=== PATIENT | female | born 1945 | race Two or more races ===

== ENCOUNTER → 2017-05-27 | Outpatient (CLI) | payer MEDICARE, BC ==
[2017-05-27 19:08] LABS: Basophils % (A) 1 %; CH 29.2; CHCM 32.2; Eosinophils # (A) 0.3 k/uL (0-0.7); Eosinophils % (A) 5 %; HCT 44.8 % (34.0-46.0); HDW 2.22; HGB 14.8 gm/dL (11.4-16.0); Luc # (Auto) 0.16; Luc % (Auto) 3; Lymphocytes # (A) 1.4 k/uL (1.0-4.8); Lymphocytes % (A) 22 %; MCH 30.1 pg (25.0-35.0); MCV 91.1 fL (80.0-100.0); Monocytes # (A) 0.5 k/uL (0-1.0); Monocytes % (A) 7 %; Neutrophils # (A) 3.9 k/uL (1.3-7.7); Neutrophils % (A) 63 %; RBC 4.91 m/uL (3.80-5.40); RDW 13.2 % (11.5-15.5); WBC 6.2 k/uL (3.8-10.6); WBC (Perox) 6.61
[2017-05-27 19:14] LABS: ALT 33 U/L (9-52); AST 19 U/L (14-36); Alkaline Phosphatase 74 U/L (38-126); Anion Gap 10 mmol/L; Blood Urea Nitrogen 11 mg/dL (7-17); Calcium 9.8 mg/dL (8.4-10.2); Carbon Dioxide 27 mmol/L (22-30); Chloride 105 mmol/L (98-107); Cholesterol 240 mg/dL (<200); Glucose 92 mg/dL (74-99); HDL Cholesterol 60 mg/dL (40-60); Non-African American GFR(MDRD) >60 (>60 ml/min/1.73 sqM); Potassium 4.2 mmol/L (3.5-5.1); Sodium 142 mmol/L (137-145); Total Bilirubin 0.3 mg/dL (0.2-1.3); Total Protein 6.8 g/dL (6.3-8.2); Triglycerides 124 mg/dL (<150)
== END ==
LOC: MMGSC 12:33
PROVIDERS: ATTEND Family Medicine
DX: I49.9 Cardiac arrhythmia, unspecified (principal); I10 Essential (primary) hypertension
CPT/HCPCS: 36415; 80053; 80061; 84439; 84443; 85025

== ENCOUNTER → 2017-07-08 | Outpatient (CLI) | payer MEDICARE, BC ==
--- NOTE | 2017-07-08 08:47 | US ---
EXAMINATION TYPE: US abdomen limited DATE OF EXAM: 07/08/2017 COMPARISON: NONE CLINICAL HISTORY: Q44.6 liver cyst. EXAM MEASUREMENTS: Liver Length: 14.7 cm Gallbladder Wall: 0.1 cm CBD: 0.4 cm Right Kidney: 10.0 x 6.1 x 5.2 cm Pancreas: Obscured by bowel gas, visualized portions appear wnl Liver: Cyst visualized in left lobe measuring 4.6 x 4.3 x 4.4 cm Gallbladder: wnl Evidence for sonographic Nichols's sign: No CBD: wnl Right Kidney: Echogenic foci visualized upper pole measuring 0.6 cm IMPRESSION: 1. Simple hepatic cyst left hepatic lobe. 2. Nonobstructing calculus right kidney.
--- NOTE | 2017-07-08 08:50 | CT ---
EXAMINATION TYPE: CT angio neck DATE OF EXAM: 07/08/2017 HISTORY: Bilateral carotid stenosis per order. (D 65.23). Presumed abnormal outside ultrasound. COMPARISON: NONE CT DLP: 269.5 mGycm. Automated Exposure Control for Dose Reduction was Utilized. TECHNIQUE: CTA scan of the neck is performed with IV Contrast, patient injected with 65 mL of Omnipa que 350, axial images are obtained, coronal and sagittal reformatted images are reviewed. Three-D rec onstructed images are created on an independent workstation and reviewed. FINDINGS: Carotid/Vascular Structures: There is mild to borderline moderate mixed plaque in the aortic arch. Th ere is normal three-vessel origin from the aortic arch. There is prominent calcified plaque at origin of left subclavian artery noted. Lumen diameter is narrowed down to 4.2 mm on raw data image 72. Lum en diameter reconstitutes to 7.8 mm thus stenosis is under but approaching 50%. There is more mild peripheral calcified plaque at origin of right brachiocephalic and left common car otid arteries. The right common carotid artery shows normal origin from the right brachiocephalic art bhavin. There is mild to moderate peripheral calcified plaque after carotid takeoff in the right brachio cephalic artery without significant stenosis. There is mild peripheral calcified plaque in the mid to distal right common carotid artery. There is moderate predominantly noncalcified plaque in the distal right common carotid artery. There is severe mixed plaque at right carotid bulb extending into proximal internal and external carotid arteries. S ignificant stenosis in right internal carotid artery is present at its origin. Lumen diameter is narr owed to 1.7 x 1.0 mm on raw data image 474 with reconstitution to 4.7 mm superior to this on image 52 1. This calculates to diameter narrowing approaching 80%. Computer estimates degree of narrowing up t o 1.6 mm with calculated 60% diameter narrowing and 78% area narrowing. Right external carotid artery is patent with stenosis just under 50% at origin identified. Remainder of right internal carotid art bhavin shows slightly tortuous course with moderate peripheral calcified plaque supraclinoid segment. No significant focal stenosis is clearly seen. There is no significant plaque or stenosis in the left common carotid artery. There is more moderate mixed plaque at left carotid bulb extending into proximal internal carotid artery. No significant edna nosis is identified. There is more moderate calcified plaque supraclinoid segment left distal interna l carotid artery. No significant stenosis is seen. There is patent left external carotid artery witho ut significant plaque or stenosis noted. There is tortuous course to the left vertebral artery. There is codominant vertebrobasilar system. Ve rtebral arteries are patent to the basilar junction. Other: Some calcifications of uncertain etiology are seen along the anterior inferior aspect of right submandibular gland. There is calcified 9 mm nodule lower pole level anteriorly right thyroid. There are smaller 6 mm hypo dense nodule upper pole right thyroid lobe. Consider follow-up thyroid ultrasound correlation. There is moderate disc space narrowing C4-C5 and C5-C6 levels. There is moderate disc space narrowing with sclerosis T1-T2 level. There is background mild emphysematous change and mild biapical scarring. IMPRESSION: Hemodynamically significant stenosis in proximal internal carotid artery is confirmed, di ameter and area of narrowing are calculated just under 80% by my analysis and computer [employer] analys[employer] s.
== END | disposition home or self-care (01) ==
LOC: RADUSMAIN 07:27
PROVIDERS: ATTEND Internal Medicine Interventional Cardiology
DX: K76.89 Other specified diseases of liver (principal); N20.0 Calculus of kidney; I65.29 Occlusion and stenosis of unspecified carotid artery
CPT/HCPCS: 76705; 70498; Q9967

== ENCOUNTER 2017-07-09 06:19 | Day surgery (SDC) | payer MEDICARE, BC ==
[2017-07-01 09:59] VITALS: BMI 28.1
[2017-07-09] MEDS ORDERED: ALPRAZolam 0.5 MG TAB PO PRN (06:23)
[2017-07-09] MEDS ORDERED: SODIUM CHLORIDE 0.9% 1,000 ML in EMPTY BAG 1 BAG IV ONE (06:23)
[2017-07-09] MEDS ORDERED: ATORVASTATIN 80 MG TAB PO STA (06:23)
[2017-07-09] MEDS ORDERED: ALPRAZolam 0.25 MG TAB PO PRN (06:23)
[2017-07-09] MEDS ORDERED: NITROGLYCERIN SL TABS 0.4 MG TAB SUBLINGUAL PRN (06:23)
[2017-07-09] MEDS ORDERED: ASPIRIN 325 MG TAB PO STA (06:23)
[2017-07-09 07:11] VITALS: RESP 16; TEMP 98
[2017-07-09] MEDS ORDERED: LIDOCAINE 2% INJ 20 MG/ML (20 ML MDV) ONE (07:19)
[2017-07-09] MEDS ORDERED: SODIUM CHLORIDE 0.9% 1,000 ML IV ONE (07:19)
[2017-07-09] MEDS ORDERED: VERAPAMIL 2.5 MG/ML 2 ML AMP ONE (07:20)
[2017-07-09] MEDS ORDERED: fentaNYL (PF) 50 MCG/ML 2 ML AMP ONE (07:29)
[2017-07-09] MEDS ORDERED: diphenhydrAMINE 50 MG/ML 1 ML VIAL ONE (07:30)
[2017-07-09] MEDS ORDERED: HEPARIN SODIUM 1,000 UN/ML (10ML VL) ONE (07:30)
[2017-07-09] MEDS ORDERED: LIDOCAINE 2% INJ 20 MG/ML SQ ONE (07:43)
[2017-07-09] MEDS ORDERED: diphenhydrAMINE 50 MG/ML 1 ML VIAL IVP ONE (07:55)
[2017-07-09] MEDS ORDERED: fentaNYL (PF) 50 MCG/ML 2 ML AMP IV ONE (07:55)
[2017-07-09] MEDS ORDERED: HEPARIN SODIUM 1,000 UN/ML (10ML VL) IV ONE (08:01)
[2017-07-09] MEDS ORDERED: IOHEXOL 350 MG/ML 125ML BOTTLE INJ ONE (08:10)
[2017-07-09] MEDS ORDERED: RX INFO: IV CONTRAST WAS GIVEN 1 EACH MISC MISCELLANE PRN (08:27)
[2017-07-09] MEDS ORDERED: SODIUM CHLORIDE 0.9% 1,000 ML IV SCH (08:30)
[2017-07-09] MEDS ORDERED: LISINOPRIL-HCTZ 20-25 MG 1 EACH TAB PO SCH (09:00)
[2017-07-09] MEDS ORDERED: ATORVASTATIN 20 MG TAB PO SCH (09:00)
[2017-07-09] MEDS ORDERED: amLODIPine 2.5 MG TAB PO SCH (09:00)
[2017-07-09] MEDS ORDERED: ASPIRIN 81 MG CHEW PO SCH (09:00)
[2017-07-09 12:56] VITALS: BP 145/66; PULSE 65
--- NOTE | 2017-07-09 14:00 | CC ---
CARDIAC CATHETERIZATION REPORT CARDIAC CATHETERIZATION PROCEDURE NOTE: Mrs. Collins is a 71-year-old female with known history of hypertension, hyperlipidemia who recently had a myocardial perfusion imaging was consistent with ischemia. In view of that, recommendation regarding cardiac catheterization, the procedure, risks , and complication were discussed with the patient who is in full understanding and agreement. 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 Using Xylocaine anesthesia in the Seldinger technique, 6-Finnish sheath was introduced in the right radial artery. Selective right and left coronary angiography performed using 5- Finnish 3-1/2 bend right and left [place] catheter. Multiple views of the coronary artery including hemiaxial views obtained. Following that, a 5-Finnish tight pigtail catheter was introduced in the left ventricle and a 30-degree FLOWERS view of the left ventricle was obtained. Following that, catheter and sheaths were removed. Hemostasis was obtained with deployment of TRAcelet device. There was no immediate complication. Patient is returned to her room in stable condition. Of note, the patient received 3500 units of intravenous heparin as well intra-arterial Verapamil. FINDINGS: FLUOROSCOPY: There was severe calcification involving all the coronary arteries as well as the abdominal aorta. LEFT MAIN: This is a short size vessel bifurcating in the left circumflex, left anterior descending artery is without any evidence of high-grade stenosis. LEFT ANTERIOR DESCENDING ARTERY; This is a large-sized vessel reaching toward the apex with a wraparound apex segment giving rise to small diagonal branch. The left anterior descending artery gives rise to a proximal small diagonal branch that is subtotally occluded. The LAD itself has mild to moderate disease throughout its course up to 30% to 40% in the proximal mid segment. The rest of the vessel has no high-degree stenosis. LEFT CIRCUMFLEX: This is a nondominant vessel giving rise to 2 obtuse marginal branches. The left circumflex is calcified, has diffuse intimal disease. In the proximal and mid segment, he mid left circumflex has a 50% to 60% plaque and the rest of the vessel has no high-degree stenosis. RIGHT CORONARY ARTERY: This is a large dominant vessel, bifurcating distally PDA, posterolateral segment and branches. The mid-right coronary artery has a 30% to 40% plaque. The rest of the vessel has no high-degree stenosis. LEFT VENTRICULOGRAM: The left ventriculogram was performed in 30-degree FLOWERS view and revealed normal left ventricular size and systolic function. Ejection fraction 60%. There was no significant mitral regurgitation. Calcification of the abdominal aorta was noted. HEMODYNAMICS: There was no gradient across the aortic valve. The left ventricular end- diastolic pressure was 14 to 18 mmHg. CONCLUSION: 1. Calcified coronary artery with calcified abdominal aorta. 2. Moderate triple-vessel coronary artery disease with occluded small diagonal branch. 3. Normal left ventricular size and systolic function. RECOMMENDATION: In view of finding anatomy, recommend continuing with medical therapy with aggressive coronary risk management has been initiated. Those findings and recommendation were discussed with the patient and her family and are in full understanding and agreement. Duration of procedure was 12 minutes. MMJOSHL / MYKEN: [id number] / RAKESH
--- NOTE | 2017-07-09 14:03 | LTR ---
Date: July 09, 2017 Re: Jeri Collins Dear Dr. Nieto: I had the opportunity to perform cardiac catheterization on Mrs. Collins at [facility] on the 09 of July and a full copy of the procedure note will be forwarded to you. In brief, she was found to have moderate triple-vessel coronary disease with chronically occluded small first diagonal branch and a preserved left ventricular size and systolic function. Based on those finding, I have recommended to maximize her medical therapy and depending on her progress, further recommendation will be made. Thank you again for allowing me the opportunity to participate in her care. Please feel free to call for any questions. Sincerely yours, MD CESARIO Cuenca / MYKEN: [id number] /
== END 2017-07-09 13:45 | disposition home or self-care (01) ==
LOC: CATHCVL 06:19
PROVIDERS: ATTEND Internal Medicine Interventional Cardiology
DX: I25.10 Atherosclerotic heart disease of native coronary artery without angina pectoris (principal); I25.82 Chronic total occlusion of coronary artery; I70.0 Atherosclerosis of aorta; R94.39 Abnormal result of other cardiovascular function study; I10 Essential (primary) hypertension; E78.2 Mixed hyperlipidemia; I65.23 Occlusion and stenosis of bilateral carotid arteries; I89.0 Lymphedema, not elsewhere classified; I73.9 Peripheral vascular disease, unspecified; E78.00 Pure hypercholesterolemia, unspecified; Z82.49 Family history of ischemic heart disease and other diseases of the circulatory system; Z79.82 Long term (current) use of aspirin; Z79.899 Other long term (current) drug therapy
CPT/HCPCS: 93458; 99152; C1894; C1769; J2001; J1200; J3010; J1644; Q9967

== ENCOUNTER 2017-09-01 10:50 | Inpatient (IN) | payer MEDICARE, BC ==
[2017-08-23 08:59] VITALS: BMI 28.0
[2017-09-10] MEDS ORDERED: ceFAZolin IN SWFI 2 GM/20 ML SYRINGE IVP ONE (05:00)
[2017-09-10] MEDS ORDERED: DEXAMETHASONE SOD PHOSPHATE 10 MG/ML 1 ML VIAL IV ONE (05:26)
[2017-09-10] MEDS ORDERED: LACTATED RINGERS 1,000 ML IV SCH (05:26)
[2017-09-10] MEDS ORDERED: MIDAZOLAM 2 MG/2 ML VIAL IV PRN (05:26)
[2017-09-10] MEDS ORDERED: NITROGLYCERIN-D5W PMX 50 MG in DEXTROSE/WATER 1 250ML.BAG IV SCH ×2 (08:30→12:01)
[2017-09-10] MEDS ORDERED: LIDOCAINE 1% 20 ML VIAL (10MG/ML) FOR IV START INTRADERMA ONE (08:30)
[2017-09-10] MEDS ORDERED: PHENYLEPHRINE 40 MG in SODIUM CHLORIDE 0.9% 250 ML IV SCH (08:30)
[2017-09-10] MEDS: ONDANSETRON 4 MG/2 ML VIAL IVP ONE ×2 (08:39→12:08)
[2017-09-10] MEDS ORDERED: GELATIN SPONGE,ABSORB (LARGE) 1 EACH SPONGE TOPICAL ONE (08:54)
[2017-09-10] MEDS ORDERED: THROMBIN (BOVINE) 5,000 UNIT VIAL TOPICAL ONE (08:54)
[2017-09-10] MEDS ORDERED: HEPARIN SODIUM,PORCINE 10,000 UNIT/ML 1 ML VIAL ONE (09:13)
[2017-09-10] MEDS ORDERED: SUCCINYLCHOLINE CHLORIDE 100 MG/5 ML SYR IV ONE (09:13)
[2017-09-10] MEDS ORDERED: PROPOFOL 10 MG/ML 20 ML VIAL IV ONE (09:13)
[2017-09-10] MEDS ORDERED: LIDOCAINE 1% INJ 10MG/ML (20 ML MDV) ONE (09:13)
[2017-09-10] MEDS ORDERED: MIDAZOLAM 2 MG/2 ML VIAL ONE (09:13)
[2017-09-10] MEDS ORDERED: ROCURONIUM BROMIDE 10 MG/ML 10 ML VIAL IV ONE (09:13)
[2017-09-10] MEDS ORDERED: ePHEDrine SULFATE/0.9% NACL/PF 50 MG/5 ML SYRINGE IV ONE (09:13)
[2017-09-10] MEDS ORDERED: GLYCOPYRROLATE 0.2 MG/ML 2 ML VIAL ONE (09:13)
[2017-09-10] MEDS ORDERED: HYDROmorphone (PF) 1 MG/ML ONE (09:13)
[2017-09-10] MEDS ORDERED: PHENYLEPHRINE-0.9% NACL SYG 1 MG/10 ML SYRINGE ONE (09:13)
[2017-09-10] MEDS ORDERED: fentaNYL (PF) 50 MCG/ML 2 ML AMP ONE (09:13)
[2017-09-10] MEDS ORDERED: NEOSTIGMINE 1 MG/ML 10 ML VIAL ONE (09:13)
[2017-09-10] MEDS ORDERED: SODIUM CHLORIDE 0.9% 500 ML with HEPARIN SODIUM,PORCINE 5,000 UNIT IV ONE ×2 (09:55)
[2017-09-10] MEDS ORDERED: LACTATED RINGERS 1,000 ML IV ONE ×3 (09:58→11:08)
--- NOTE | 2017-09-10 11:13 | P.OP ---
Date of Procedure: 09/10/17 Preoperative Diagnosis: Grade right internal carotid artery stenosis Postoperative Diagnosis: High-grade internal carotid artery stenosis Procedure(s) Performed: Right internal carotid artery endarterectomy with Dacron patch angioplasty Anesthesia: GETA Surgeon: Jose Oliva Estimated Blood Loss (ml): 50 Pathology: other (Atherosclerotic plaque) Condition: stable Disposition: ICU Description of Procedure: She was brought to the operating room electively for right carotid endarterectomy she had previously had CT angiography ultrasound all revealed high-grade 90% stenosis in the right internal carotid artery the patient was under general anesthesia prepped and draped in usual sterile Betadine fashion had an incision on the anterior border the sternocleidomastoid carried out through skin and subcutaneous tissue electrocautery was utilized for hemostasis the brain was monitored with EEG and SSEP monitoring by Syandus and out of the heparin was administered after 7000 units of circulating heparin 5 minutes we clamped the carotid artery internal and external carotid arteries and opened through a high-grade plaque at the takeoff of the internal carotid artery a meticulous carotid endarterectomy was performed with a Lansdowne dural elevator and a fine hemostat a copious amount of calcific plaque was removed and then we meticulously under loupe magnification removed all particulate debris and intima. We flushed the vessel with heparin saline solution and closed the vessel closed with a dacryon Hemashield patch utilizing 6-0 Prolene suture from each apex the patch was completely close and finally vented of any potential air or debris and restore blood flow through the carotid artery without any changes in neural monitoring the blood pressure was stable throughout we placed a thin layer of CoSeal on the suture line and maintained hemostasis in this fashion and a drain was deemed unnecessary the wound was closed in layers with Vicryl sutures and Steri-Strips all needle sponge and his counts were correct
[2017-09-10] MEDS ORDERED: HYDROcodone/APAP 5-325MG 1 EACH TAB PO PRN (12:01)
[2017-09-10] MEDS ORDERED: ACETAMINOPHEN TAB 325 MG TAB PO PRN (12:01)
[2017-09-10] MEDS ORDERED: BENZOCAINE/MENTHOL LOZENG 1 EACH LOZENGE MUCOUS MEM PRN (12:01)
[2017-09-10] MEDS ORDERED: TEMAZEPAM 15 MG CAP PO PRN (12:01)
[2017-09-10] MEDS ORDERED: TRIMETHOBENZAMIDE 100 MG/ML 2 ML VIAL IM PRN (12:01)
[2017-09-10] MEDS ORDERED: MORPHINE SULFATE 10 MG/ML SYRINGE IVP PRN (12:01)
[2017-09-10] MEDS ORDERED: DEXTROSE 5%-0.45% NACL 1,000 ML IV SCH (12:01)
[2017-09-10] MEDS ORDERED: MAG HYDROX/AL HYDROX/SIMETH 30 ML CUP PO PRN (12:01)
[2017-09-10] MEDS: HYDROmorphone 1 MG/ML 1 ML SYRINGE IVP PRN ×2 (12:08→12:15)
[2017-09-10 12:51] LABS: Glucose,Whole Blood 102 mg/dL (75-99)
[2017-09-10] MEDS: HYDROcodone/APAP 5-325MG 1 EACH TAB PO PRN ×2 (13:52→20:43)
--- NOTE | 2017-09-10 14:52 | P.CONS ---
History of Present Illness - Reason for Consult Consult date: 09/10/17 hypertensive Requesting physician: Jose Oliva - Chief Complaint carotid stenosis - History of Present Illness Patient is a 72-year-old female with a past medical history of hypertension, dyslipidemia, coronary artery disease, arthritis, and chronic lymphedema presented for nonemergent right-sided carotid endarterectomy. She had had a CTA of the neck performed which showed a greater than 80% stenosis of the right internal carotid artery. She had surgery completed the right CEA on 09/10 without any immediate complications. We were consulted to help with hypertensive management as her primary care physician is . Seen and examined at bedside. She states she was in her typical state of health but was found to have carotid stenosis and therefore surgery was scheduled. She sees Dr. Goldberg for cardiology and recently had undergone a cardiac catheterization which showed triple vessel disease, and maximal medical therapy was recommended. She states that her pain is well controlled postoperatively. She denies any nausea, lightheadedness, dizziness, weakness, numbness, or tingling. She has no other complaints currently. Family at bedside and all questions answered. Review of Systems General: no fever/chills, no rigors, no weight loss/weight gain, no change in appetite Eyes: No double vision, no unusual blurry vision, no loss of vision ENT: No rhinorrhea, congestion, no trush Cardiovascular: No chest pain, no palpitations, no syncope, no edema, No paroxysmal nocturnal dyspnea, No dizziness Pulmonary: No shortness of breath, no wheezing, no cough, no hemoptysis Abdominal: No abdominal pain, no constipation, no diarrhea, no vomiting, no nausea, no distention Genitourinary: No dysuria, no urinary frequency, no hematuria, no unusual discharge/odor Neuro: No unusual paresthesias, no unusual paresis/paralysis, no headache Dermatologic: No unusual rashes, no unusual lesions, no unusual changes in nails Endocrinology: No intolerance to heat/cold, no excessive thirst, no unusual fatigue Hematologic: No unusual bruising or bleeding, no unusual cervical lymphadenopathy Psychiatric: No changes in mood or behaviors, no changes in sleep pattern Past Medical History Past Medical History: Cancer, Hyperlipidemia, Hypertension, Osteoarthritis (OA) Additional Past Medical History / Comment(s): "irregular heart rate", HX SKIN CA ON CHEEK, Coronary artery disease, chronic lymphedema, peripheral vascular disease History of Any Multi-Drug Resistant Organisms: None Reported Past Surgical History: Appendectomy, Heart Catheterization, Joint Replacement Additional Past Surgical History / Comment(s): rt hip replacement, AMADOR CATARACT , right carotid endarterectomy 09/10/17 Past Anesthesia/Blood Transfusion Reactions: No Reported Reaction Past Psychological History: No Psychological Hx Reported Smoking Status: Never smoker Past Alcohol Use History: None Reported Past Drug Use History: None Reported Additional History: Lives with her daughter, does not use any assistive devices - Past Family History Daughter(s) Family Medical History: Cancer Additional Family Medical History / Comment(s): 1 daughter-hodgkins. 1 daughter - thyroid Father Family Medical History: Myocardial Infarction ([place]) Additional Family Medical History / Comment(s): of myocardial infarction at age 51 Mother Additional Family Medical History / Comment(s): Had permanent pacemaker Sister(s) Family Medical History: Coronary Artery Disease (CAD) Additional Family Medical History / Comment(s): Carotid artery disease requiring CEA Medications and Allergies Home Medications Medication Instructions Recorded Confirmed Type Aspirin [Adult Low Dose Aspirin EC] 81 mg PO DAILY 07/01/17 09/10/17 History Lisinopril-Hctz 20-25 mg 1 tab PO DAILY 07/01/17 09/10/17 History [Zestoretic 20-25] amLODIPine BESYLATE [Norvasc] 2.5 mg PO DAILY 07/01/17 09/10/17 History Atorvastatin [Lipitor] 40 mg PO HS 08/23/17 09/10/17 History Allergies Allergy/AdvReac Type Severity Reaction Status Date / Time No Known Allergies Allergy Verified 09/10/17 12:22 Physical Exam Osteopathic Statement: *. No significant issues noted on an osteopathic structural exam other than those noted in the History and Physical/Consult. Vitals: Vital Signs Temp Pulse Pulse Resp BP BP BP 09/10/17 14:00 75 16 133/55 09/10/17 13:45 66 15 09/10/17 13:30 68 12 09/10/17 13:15 87 14 09/10/17 13:00 97.5 F L 83 134/53 09/10/17 12:31 64 16 120/58 137/44 09/10/17 12:15 67 14 120/58 138/40 09/10/17 12:01 09/10/17 11:59 72 16 131/59 146/46 09/10/17 11:39 97.5 F L 59 L 16 148/86 162/48 09/10/17 08:04 97.3 F L 73 16 BP BP Pulse Ox 09/10/17 14:00 98 09/10/17 13:45 96 09/10/17 13:30 96 09/10/17 13:15 95 09/10/17 13:00 95 09/10/17 12:31 09/10/17 12:15 100 09/10/17 12:01 97 09/10/17 11:59 100 09/10/17 11:39 100 09/10/17 08:04 185/81 169/71 94 L Intake and Output 09/09/17 09/10/17 09/10/17 22:59 06:59 14:59 Intake Total 1731 Output Total 565 Balance 1166 Intake: IV 1731 Dextrose 5%-0.45% NaCl 1, 80 000 ml @ 40 mls/hr IV . Q24H [facility] Rx#:[id number] Output: Urine 540 Estimated Blood Loss 25 ABP, PAP, CO, CI - Last 8 Hours Arterial Blood Pressure 177/51 Arterial Blood Pressure 157/53 Arterial Blood Pressure 153/47 Arterial Blood Pressure 176/58 General: non toxic, mild distress, appears at stated age, normal weight Derm: no rashes, no lesions, no ulcers, no unusual ecchymoses Head: atraumatic, normocephalic, symmetric Eyes: EOMI, no lid lag, anicteric sclera, pupils equal round reactive to light ENT: no post nasal drip, no thrush , nares patent, no pharyngeal erythema Mouth: no lip lesion, mucus membranes moist Cardiovascular: S1S2 reg, no murmur, positive posterior tibial pulse bilateral, 3+non pitting edema , no JVD, no clubbing, no cyanosis, capillary refill less than 2 seconds Lungs: CTA bilateral, no rhonchi, no rales , no accessory muscle use Abdominal: soft, nontender to palpation, no guarding, no appreciable organomegaly, normal bowel sounds Ext: no gross muscle atrophy, muscle strength 5 out of 5 in all 4 extremities grossly, no contractures, Neuro: CN II-XI grossly intact, light touch intact all 4 extremities Psych: Alert, oriented, appropriate affect Results Labs: Abnormal Lab Results - Last 24 Hours (Table) 09/10/17 Range/Units 12:49 POC Glucose (mg/dL) 102 H (75-99) mg/dL Comments: Laboratory analysis done on 09 07 preoperatively reviewed WBC 9.8, hemoglobin 14, platelets 381, INR 1, PTT 24.2 Sodium 135, potassium 4, chloride 97, carbon dioxide 29, BUNs 12, creatinine 0.7 , glucose 93 Assessment and Plan Assessment: Carotid artery disease status post right-sided CEA -On aspirin 181 mg daily -On nitro drip -Management per primary team Hypertension, currently accelerated -Pain control -Nitro drip -Continue with home Norvasc, lisinopril/hydrochlorothiazide -Follow blood pressures Dyslipidemia -Elevated on last check in May -Discussed with family and patient has repeat blood work to be done in early October -Continue with statin Obesity -Structured outpatient weight loss Coronary artery disease -Continue with aspirin, statin Thank you for allowing us to participate in the care of this patient, someone from the [facility] can be reached 24 hours a day at [phone]
[2017-09-10] MEDS ORDERED: METOPROLOL TARTRATE 5 MG/5 ML VIAL IVP STA (15:02)
[2017-09-10] MEDS: HEPARIN SODIUM,PORCINE 5,000 UNIT/ML 1 ML VIAL SQ SCH ×2 (15:19→23:31)
[2017-09-10] MEDS: ceFAZolin IN SWFI 2 GM/20 ML SYRINGE IVP SCH ×2 (15:21→23:28)
[2017-09-10] MEDS ORDERED: amLODIPine 2.5 MG TAB PO STA (16:12)
[2017-09-10] MEDS ORDERED: ATORVASTATIN 40 MG TAB PO SCH (21:00)
[2017-09-11 04:38] LABS: Basophils % (A) 0 %; CH 30.1; CHCM 32.5; Eosinophils # (A) 0.1 k/uL (0-0.7); Eosinophils % (A) 1 %; HCT 36.3 % (34.0-46.0); HDW 2.19; HGB 11.5 gm/dL (11.4-16.0); Luc # (Auto) 0.15; Luc % (Auto) 1; Lymphocytes # (A) 1.3 k/uL (1.0-4.8); Lymphocytes % (A) 9 %; MCH 29.6 pg (25.0-35.0); MCHC 31.7 g/dL (31.0-37.0); MCV 93.4 fL (80.0-100.0); Mean Platelet Volume 7.8; Monocytes # (A) 0.7 k/uL (0-1.0); Monocytes % (A) 5 %; Neutrophils # (A) 11.4 k/uL (1.3-7.7); Neutrophils % (A) 84 %; RBC 3.88 m/uL (3.80-5.40); RDW 14.1 % (11.5-15.5); WBC 13.6 k/uL (3.8-10.6); WBC (Perox) 14.75
[2017-09-11 04:53] LABS: Anion Gap 4 mmol/L; Blood Urea Nitrogen 10 mg/dL (7-17); Calcium 8.9 mg/dL (8.4-10.2); Carbon Dioxide 26 mmol/L (22-30); Chloride 103 mmol/L (98-107); Glucose 115 mg/dL (74-99); Non-African American GFR(MDRD) >60 (>60 ml/min/1.73 sqM); Phosphorus 4.2 mg/dL (2.5-4.5); Potassium 3.9 mmol/L (3.5-5.1); Sodium 133 mmol/L (137-145)
--- NOTE | 2017-09-11 08:25 | P.PN ---
Subjective Progress Note Date: 09/11/17 Principal diagnosis: Hypertension Patient is a 72-year-old female with a past medical history of hypertension, dyslipidemia, coronary artery disease, arthritis, and chronic lymphedema presented for nonemergent right-sided carotid endarterectomy. She had had a CTA of the neck performed which showed a greater than 80% stenosis of the right internal carotid artery. She had surgery completed with a right CEA on 09/10 without any immediate complications. We were consulted to help with hypertensive management as her primary care physician is . Patient seen and examined at bedside. States that her pain is well-controlled. She did have a slight episode of dizziness when sitting up this morning but this resolved with time. She denies any nausea, vomiting. She has not had any unusual weakness. She denies any chest pain or shortness of breath. Objective - Vital Signs Vital signs: Vital Signs Temp 97.8 F 09/11/17 04:00 Pulse 49 L 09/11/17 07:00 Resp 18 09/11/17 07:00 BP 111/48 09/11/17 07:00 Pulse Ox 97 09/11/17 08:06 Intake & Output 09/10/17 09/11/17 09/11/17 18:59 06:59 18:59 Intake Total 1963.6 952.890 40 Output Total 790 1070 220 Balance 1173.6 -117.110 -180 Weight 76.9 kg Intake: IV 1931 440 40 Dextrose 5%-0.45% NaCl 1, 280 440 40 000 ml @ 40 mls/hr IV . Q24H [facility] Rx#:[id number] Intake, IV Titration 32.6 12.890 Amount Nitroglycerin-D5w Pmx 50 32.6 12.890 mg In Dextrose/Water 1 250ml.bag @ Titrate IV . Q0M [facility] Rx#:[id number] Tube Feeding 500 Output: Urine 765 1070 220 Estimated Blood Loss 25 Other: Voiding Method Indwelling Catheter Indwelling Catheter ABP, PAP, CO, CI - Last Documented Arterial Blood Pressure 131/42 - Exam General: non toxic, no distress, appears at stated age Derm: no rashes, no lesions Head: atraumatic, normocephalic, symmetric Eyes: EOMI, no lid lag, anicteric sclera ENT: no post nasal drip, no thrush Mouth: no lip lesion, mucus membranes moist Cardiovascular: S1S2 reg, no murmur, positive posterior tibial pulse bilateral, Lungs: CTA bilateral, no rhonchi, no rales , no accessory muscle use Abdominal: soft, nontender to palpation, no guarding, no appreciable organomegaly Ext: no gross muscle atrophy, no edema, no contractures Neuro: CN II-XI grossly intact, no focal neuro deficits, moving all 4 extremites, light touch intact bilaterally and lower extremities Psych: Alert, oriented, appropriate affect - Labs CBC & Chem 7: 09/11/17 04:30 09/11/17 04:30 Labs: Abnormal Lab Results - Last 24 Hours (Table) 09/10/17 09/11/17 09/11/17 Range/Units 12:49 04:30 04:30 WBC 13.6 H (3.8-10.6) k/uL Neutrophils # 11.4 H (1.3-7.7) k/uL Sodium 133 L (137-145) mmol/L Glucose 115 H (74-99) mg/dL POC Glucose (mg/dL) 102 H (75-99) mg/dL Assessment and Plan Assessment: Carotid artery disease status post right-sided CEA -On aspirin 181 mg daily - Nitro gtt off -Management per primary team Hypertension, currently 150s - has not recieved morning meds yet, will check back on vitals once Norvasc, lisinopril/hydrochlorothiazide received -Pain control -Nitro drip off -Follow blood pressures Dyslipidemia -Elevated on last check in May -Scheduled for repeat blood work to be done in early October -Continue with statin Obesity -Structured outpatient weight loss Coronary artery disease -Continue with aspirin, statin Thank you for allowing us to participate in the care of this patient, someone from the [facility] can be reached 24 hours a day at [phone]
[2017-09-11] MEDS: HEPARIN SODIUM,PORCINE 5,000 UNIT/ML 1 ML VIAL SQ SCH (08:37)
[2017-09-11] MEDS: HYDROcodone/APAP 5-325MG 1 EACH TAB PO PRN (08:41)
[2017-09-11] MEDS ORDERED: ASPIRIN 81 MG PO SCH ×2 (09:00)
[2017-09-11] MEDS ORDERED: amLODIPine 2.5 MG TAB PO SCH (09:00)
[2017-09-11] MEDS ORDERED: LISINOPRIL-HCTZ 20-25 MG 1 EACH TAB PO SCH (09:00)
[2017-09-11 09:10] VITALS: TEMP 97.7
--- NOTE | 2017-09-11 10:00 | P.PN ---
Subjective Progress Note Date: 09/11/17 Principal diagnosis: High-grade right internal carotid artery stenosis, hypertension, dyslipidemia, peripheral vascular disease, coronary artery disease, osteoarthritis, and chronic lymphedema. POD #1, elective right internal carotid artery endarterectomy with Dacron patch angioplasty. Patient is laying in bed with her head elevated, she is in no acute distress. She reports her pain is well controlled. Objective - Vital Signs Vital signs: Vital Signs Temp 97.7 F 09/11/17 08:00 Pulse 57 L 09/11/17 09:00 Resp 21 09/11/17 09:00 BP 140/53 09/11/17 09:00 Pulse Ox 95 09/11/17 09:00 Intake & Output 09/10/17 09/11/17 09/11/17 18:59 06:59 18:59 Intake Total 1963.6 952.890 120 Output Total 790 1070 220 Balance 1173.6 -117.110 -100 Weight 76.9 kg 76.9 kg Intake: IV 1931 440 120 Dextrose 5%-0.45% NaCl 1, 280 440 120 000 ml @ 40 mls/hr IV . Q24H DAF[facility] Rx#:[id number] Intake, IV Titration 32.6 12.890 Amount Nitroglycerin-D5w Pmx 50 32.6 12.890 mg In Dextrose/Water 1 250ml.bag @ Titrate IV . Q0M DAF[facility] Rx#:[id number] Tube Feeding 500 Output: Urine 765 1070 220 Estimated Blood Loss 25 Other: Voiding Method Indwelling Catheter Indwelling Catheter ABP, PAP, CO, CI - Last Documented Arterial Blood Pressure 131/42 - Constitutional General appearance: Present: cooperative, no acute distress - EENT Eyes: Present: PERRLA ENT: Present: hearing grossly normal - Neck Details: No JVD, no lymphadenopathy. - Respiratory Details: Lung sounds are essentially clear throughout, diminished bilateral bases. Respirations are symmetrical and nonlabored. Oxygen saturation are 96% on room air. She is achieving 1750 mL on her incentive spirometry. - Cardiovascular Details: Regular rhythm and rate. S1 and S2 present, negative for S3, gallop or murmur. Bedside telemetry showing sinus bradycardia heart rate 54. Edema present to her left leg +2. - Gastrointestinal Gastrointestinal Comment(s): Abdomen soft, nontender and nondistended. Active bowel sounds all 4 abdominal quadrants. She is tolerating oral intake. - Genitourinary Genitourinary Comment(s): Adequate urine output. Clear yellow urine. - Integumentary Integumentary Comment(s): Right neck incision clean dry and well approximated. Scant serosanguineous drainage. Dressing clean and dry. - Neurologic Neurologic Comment(s): No focal deficits. Neurologic: Present: CNII-XII intact - Musculoskeletal Musculoskeletal: Present: gait normal, strength equal bilaterally - Psychiatric Psychiatric: Present: A&O x's 3, appropriate affect, intact judgment & insight - Allied health notes Allied health notes reviewed: nursing - Labs CBC & Chem 7: 09/11/17 04:30 09/11/17 04:30 Labs: Abnormal Lab Results - Last 24 Hours (Table) 09/10/17 09/11/17 09/11/17 Range/Units 12:49 04:30 04:30 WBC 13.6 H (3.8-10.6) k/uL Neutrophils # 11.4 H (1.3-7.7) k/uL Sodium 133 L (137-145) mmol/L Glucose 115 H (74-99) mg/dL POC Glucose (mg/dL) 102 H (75-99) mg/dL Assessment and Plan (1) Stenosis of right carotid artery greater than 50% Current Visit: Yes Status: Acute Code(s): I65.21 - OCCLUSION AND STENOSIS OF RIGHT CAROTID ARTERY SNOMED Code(s): 455875517523799 (2) Hypertension Current Visit: Yes Status: Acute Code(s): I10 - ESSENTIAL (PRIMARY) HYPERTENSION SNOMED Code(s): 75390163 (3) Hyperlipidemia Current Visit: Yes Status: Acute Code(s): E78.5 - HYPERLIPIDEMIA, UNSPECIFIED SNOMED Code(s): 04932051 (4) Osteoarthritis Current Visit: Yes Status: Acute Code(s): M19.90 - UNSPECIFIED OSTEOARTHRITIS, UNSPECIFIED SITE SNOMED Code(s): 039745621 (5) Lymphedema of left lower extremity Current Visit: Yes Status: Acute Code(s): I89.0 - LYMPHEDEMA, NOT ELSEWHERE CLASSIFIED SNOMED Code(s): 43620171150361377 (6) Coronary artery disease Current Visit: Yes Status: Acute Code(s): I25.10 - ATHSCL HEART DISEASE OF [place] CORONARY ARTERY W/O ANG PCTRS SNOMED Code(s): 67773512 Plan: 1. We will saline lock her IV. 2. Ambulate in the hallway as tolerated. Increase activity as tolerated. 3. Encourage use of her incentive spirometry every hour while awake. 4. Discharge instructions were reviewed with the patient. 5. We will discharge patient home today. Time with Patient: Greater than 30
--- NOTE | 2017-09-11 11:05 | P.DS ---
Providers Date of admission: 09/10/17 07:33 Expected date of discharge: 09/11/17 Attending physician: Jose Oliva Consults: 09/10/17 11:54 Consult Physician Routine Consulting Provider: Rosanna Gonsales Consult Reason/Comments: medical managment Do you want consulting provider notified?: Yes Primary care physician: Stated None - Discharge Diagnosis(es) (1) Stenosis of right carotid artery greater than 50% Current Visit: Yes Status: Acute (2) Hypertension Current Visit: Yes Status: Acute (3) Hyperlipidemia Current Visit: Yes Status: Acute (4) Osteoarthritis Current Visit: Yes Status: Acute (5) Lymphedema of left lower extremity Current Visit: Yes Status: Acute (6) Coronary artery disease Current Visit: Yes Status: Acute Hospital Course: FINAL DIAGNOSIS: 1. High-grade right internal carotid stenosis 2. Hypertension 3. Dyslipidemia 4. Osteoarthritis 5. Coronary artery disease 6. Lymphedema to her left lower extremity PRINCIPAL PROCEDURE: 1. Elective right carotid endarterectomy with Dacron patch angioplasty. HISTORY OF PRESENT ILLNESS: This is 72-year-old female patient who is followed by Dr. Ann-Marie Nieto on an outpatient basis. Patient has a past medical history that includes hypertension, dyslipidemia, coronary artery disease, osteoarthritis, and chronic lymphedema to her left lower extremity. Recently, the patient was on a routine physical exam at her primary care physician's office when she was noted to have an irregular heartbeat. Subsequently she was seen and evaluated by Dr. Goldberg from [facility]. She underwent some cardiac workup and underwent a carotid duplex study which showed her to have a high-grade right carotid stenosis. For further workup and evaluation the patient was seen by Dr. Moss from vascular surgery. On 07/08/2017 the patient underwent a CT angiogram of her neck which demonstrated a hemodynamically significant stenosis to her proximal right internal carotid artery. The results were discussed with the patient by Dr. Moss and an elective right endarterectomy surgery was recommended. HOSPITAL COURSE: The patient was admitted to the hospital and after obtaining consent was taken to the operating room where Dr. Oliva performed an elective right carotid endarterectomy with a Dacron patch angioplasty. The patient was subsequently recovered and transferred to the the intensive care unit for further hemodynamic monitoring and rehabilitation. Her invasive lines and hemodynamic drips were discontinued and she was ambulating in the hallway with minimal assistance. Her discharge instructions, medications and incision care and been reviewed with the patient and she'll be discharged home today. COMPLICATIONS: There were no postoperative complications. CONSULTATIONS: 1. Dr Gonsales for medical management DISCHARGE INSTRUCTIONS: 1. No driving for 2 weeks, or until physician gives their ok. 2. The patient should sleep in their own bed, no medical bed needed. 3. Stairs are not an issue. If the bedroom is upstairs, it is advised that the patient go up at night and down in the morning for the first week. Go slowly, using handrail and take 1 step at a time. 4. JANET hose are to be worn for 30 days or until physician discontinues. 5. Please notify surgeon/nurse practitioner for temperature greater than 101F or purulent drainage from incisions 6. No lifting, pushing, or pulling more than 10 pounds for 12 weeks. The physician will advise of any restriction changes. 7. Continue with incentive spirometry and splinting/heart hugger until otherwise directed by the physician. 8. Shower daily using liquid antibacterial soap and a separate white washcloth for each individual incision. Plan - Discharge Summary Discharge Rx Participant: No New Discharge Prescriptions: New Acetaminophen Tab [Tylenol] 650 mg PO Q4HR PRN tab PRN Reason: Pain Continue Lisinopril-Hctz 20-25 mg [Zestoretic 20-25] 1 tab PO DAILY amLODIPine BESYLATE [Norvasc] 2.5 mg PO DAILY Aspirin [Adult Low Dose Aspirin EC] 81 mg PO DAILY Atorvastatin [Lipitor] 40 mg PO HS Discharge Medication List Aspirin [Adult Low Dose Aspirin EC] 81 mg PO DAILY 07/01/17 [History] Lisinopril-Hctz 20-25 mg [Zestoretic 20-25] 1 tab PO DAILY 07/01/17 [History] amLODIPine BESYLATE [Norvasc] 2.5 mg PO DAILY 07/01/17 [History] Atorvastatin [Lipitor] 40 mg PO HS 08/23/17 [History] Acetaminophen Tab [Tylenol] 650 mg PO Q4HR PRN tab 09/11/17 [Rx] Follow up Appointment(s)/Referral(s): Kyrie Moss DO [Doctor of Osteopathic Medicine] - 1 Week AnnM-arie Love MD [STAFF PHYSICIAN] - 1 Week Discharge Disposition: HOME SELF-CARE
[2017-09-11 11:17] VITALS: BP 104/51; PULSE 64; RESP 22
== END 2017-09-11 12:22 | disposition home or self-care (01) | DRG 39 ==
LOC: 2ORMAIN 09-10 07:33 → 6ICU 09-10 11:27
PROVIDERS: ADMIT Thoracic Surgery (Cardiothoracic Vascular Surgery); ATTEND Thoracic Surgery (Cardiothoracic Vascular Surgery)
PROC: 03CK0ZZ Extirpation of Matter from Right Internal Carotid Artery, Open Approach (ICD-10-PCS; principal; 2017-09-10 09:00)
PROC: 03UK0JZ Supplement Right Internal Carotid Artery with Synthetic Substitute, Open Approach (ICD-10-PCS; principal; 2017-09-10 09:00)
DX: I65.21 Occlusion and stenosis of right carotid artery (principal); I10 Essential (primary) hypertension; E78.5 Hyperlipidemia, unspecified; E66.9 Obesity, unspecified; I25.10 Atherosclerotic heart disease of native coronary artery without angina pectoris; I73.9 Peripheral vascular disease, unspecified; I89.0 Lymphedema, not elsewhere classified; M19.90 Unspecified osteoarthritis, unspecified site; Z79.82 Long term (current) use of aspirin; Z79.899 Other long term (current) drug therapy; Z82.49 Family history of ischemic heart disease and other diseases of the circulatory system; Z85.828 Personal history of other malignant neoplasm of skin; Z96.641 Presence of right artificial hip joint
CPT/HCPCS: 36415; 80048; 80051; 82565; 82947; 83735; 84100; 84520; 85025; 85610; 85730; 86850; 86900; 86901; 87086; 88304; 88311; 93005

== ENCOUNTER → 2017-09-07 | Outpatient (CLI) | payer MEDICARE, BC ==
[2017-09-07 14:22] LABS: EKG EKG PERFORMED
[2017-09-07 14:55] LABS: Basophils # (A) 0.1 k/uL (0-0.2); Basophils % (A) 1 %; CHCM 32.5; Eosinophils # (A) 0.3 k/uL (0-0.7); Eosinophils % (A) 3 %; HCT 43.2 % (34.0-46.0); HDW 2.14; Luc # (Auto) 0.27; Luc % (Auto) 3; Lymphocytes # (A) 2.1 k/uL (1.0-4.8); Lymphocytes % (A) 22 %; MCH 30.1 pg (25.0-35.0); MCHC 32.4 g/dL (31.0-37.0); MCV 92.9 fL (80.0-100.0); Mean Platelet Volume 7.1; Monocytes # (A) 0.7 k/uL (0-1.0); Monocytes % (A) 7 %; Neutrophils # (A) 6.3 k/uL (1.3-7.7); Neutrophils % (A) 65 %; RBC 4.66 m/uL (3.80-5.40); RDW 14.3 % (11.5-15.5); WBC 9.8 k/uL (3.8-10.6); WBC (Perox) 10.32
[2017-09-07 15:07] LABS: Partial Thromboplastin Time 24.2 sec (22.0-30.0)
[2017-09-07 15:12] LABS: Anion Gap 9 mmol/L; Blood Urea Nitrogen 12 mg/dL (7-17); Carbon Dioxide 29 mmol/L (22-30); Chloride 97 mmol/L (98-107); Glucose 93 mg/dL (74-99); Non-African American GFR(MDRD) >60 (>60 ml/min/1.73 sqM); Sodium 135 mmol/L (137-145)
== END | disposition home or self-care (01) ==
LOC: LABPAT 13:35
PROVIDERS: ATTEND Thoracic Surgery (Cardiothoracic Vascular Surgery)
DX: I10 Essential (primary) hypertension (principal); I65.21 Occlusion and stenosis of right carotid artery; N39.0 Urinary tract infection, site not specified; Z01.812 Encounter for preprocedural laboratory examination; Z79.899 Other long term (current) drug therapy; Z79.01 Long term (current) use of anticoagulants
CPT/HCPCS: 36415; 80051; 82565; 82947; 84520; 85025; 85610; 85730; 87086; 93005

== ENCOUNTER → 2024-02-16 | Outpatient (CLI) | payer BC, MEDICARE ==
--- NOTE | 2024-02-16 21:47 | US ---
EXAMINATION TYPE: US abdomen limited DATE OF EXAM: 02/16/2024 COMPARISON: NONE CLINICAL INDICATION: Female, 78 years old with history of R19.00 INTRA-ABD AND PELVIC SWELLING, MASS AND LUM; obvious lump protruding from left side of umbilicus inferiorly, no injury, no pain, 78 years old Assess for hernia at location of: Left of umbilicus 6.8cm possible fat containing hernia seen at area of complaint, no change with valsalva today IMPRESSION: 1. Umbilical hernia. No loops of bowel are identified at this time. Real-time scanning was performed by the cheese specialist utilizing Valsalva and additional dynamic maneuve rs to assess for hernia. Images of the contralateral side were also acquired for direct comparison.
== END | disposition home or self-care (01) ==
LOC: RADUSWWP 09:47
PROVIDERS: ATTEND Family Medicine
DX: R19.00 Intra-abdominal and pelvic swelling, mass and lump, unspecified site (principal); K42.9 Umbilical hernia without obstruction or gangrene
CPT/HCPCS: 76705